=== PATIENT | female | born 1990 | race American Indian/Alaskan Native ===

== ENCOUNTER 2017-01-28 22:10 | Emergency (ER) | payer OTHER ==
[2017-01-28 22:10] VITALS: BMI 34.3
[2017-01-28 22:28] VITALS: BP 122/82; PULSE 69; RESP 18; TEMP 98.3; O2SAT 99
--- NOTE | 2017-01-28 23:35 | C.PDOC ---
History Of Present Illness 26 y/o female c/o sore throat x1 day. Denies fever, chills, ear pain, or URI symptoms. Time Seen by Provider: 01/28/17 22:51 Chief Complaint (Nursing): ENT Problem History Per: Patient History/Exam Limitations: None Onset/Duration Of Symptoms: Days (1) Current Symptoms Are (Timing): Still Present Severity: Mild Past Medical History Reviewed: Historical Data, Nursing Documentation, Vital Signs Vital Signs: Last Vital Signs Temp 98.3 F 01/28/17 22:26 Pulse 69 01/28/17 22:26 Resp 18 01/28/17 22:26 BP 122/82 01/28/17 22:26 Pulse Ox 99 01/29/17 02:20 - Medical History PMH: Asthma Family History: States: Unknown Family Hx - Social History Hx Tobacco Use: No Hx Alcohol Use: No Hx Substance Use: No Review Of Systems Constitutional: Negative for: Fever, Chills ENT: Positive for: Throat Pain. Negative for: Ear Pain, Nose Discharge, Nose Congestion Respiratory: Negative for: Cough Physical Exam - Physical Exam Appears: Non-toxic, No Acute Distress Skin: Warm, Dry Head: Atraumatic, Normacephalic Eye(s): bilateral: Normal Inspection, PERRL Ear(s): Bilateral: Normal Oral Mucosa: Moist Throat: Normal, Erythema (Minimal erythema of the pharynx), No Exudate ( tonsilar exudates), Other (No enlargement) Lymphatic: Adenopathy (Enlarge tender cervical adenopathy) Neurological/Psych: Oriented x3 ED Course And Treatment O2 Sat by Pulse Oximetry: 99 (RA) Pulse Ox Interpretation: Normal Progress Note: Plans: Amoxill. Patient is in no acute distress and is improving with the sore throat. Patient was advised to follow up with PMD for further evaluations and to return if symptoms worsens. Disposition Counseled Patient/Family Regarding: Diagnosis, Need For Followup, Rx Given - Disposition Disposition: HOME/ ROUTINE Disposition Time: 23:32 Condition: STABLE Additional Instructions: Please follow up with PMD Increase fluids Take meds as directed Return to ER if worse Prescriptions: Amoxicillin 500 mg PO TID #20 tab Ibuprofen [Motrin] 600 mg PO Q6H #30 tab Instructions: Pharyngitis (ED) Forms: [employer] (Cit[place]) - Clinical Impression Clinical Impression: Pharyngitis - Scribe Statement The provider has reviewed the documentation as recorded by the Scribe Alycia sanchez All medical record entries made by the Braxtonibe were at my direction and personally dictated by me. I have reviewed the chart and agree that the record accurately reflects my personal performance of the history, physical exam, medical decision making, and the department course for this patient. I have also personally directed, reviewed, and agree with the discharge instructions and disposition.
== END 2017-01-28 23:41 | disposition home or self-care (01) ==
LOC: C.ER 22:10
DX: J02.9 Acute pharyngitis, unspecified (principal)